=== PATIENT | male | born 1950 | race Caucasian/White ===

== ENCOUNTER 2020-06-07 07:53 | Outpatient (CLI) | payer OTHER, SELFPAY ==
--- NOTE | 2020-06-07 08:03 | USCV_ITS ---
Jeffrey Wells Age: 70 Gender: M : 1950 Exam Date: 06/07/2020 08:23 Ordering Phys: Josephine Travis APRN Technologist: Nyla Pizarro [place]am [place] [facility] [place] Indication: heart murmur BP: 130 / 70 HR: 54 Rhythm: Sinus Technical Quality: Good MEASUREMENTS (Male / Female) Normal Values 2D ECHO LV Diastolic Diameter PLAX 4.3 cm 4.2 - 5.9 / 3.9 - 5.3 cm LV Systolic Diameter PLAX 3.2 cm LV Chamber Size 3.7 cm IVS Diastolic Thickness 0.9 cm 0.6 - 1.0 / 0.6 - 0.9 cm IVS Systolic Thickness 1.3 cm LVPW Diastolic Thickness 1.2 cm 0.6 - 1.0 / 0.6 - 0.9 cm LVPW Systolic Thickness 1.1 cm RV Chamber Size 3.1 cm LVOT Diameter 2.0 cm LV Ejection Fraction 2D Teich 53.2 % LV Ejection Fraction MOD 2C 53.1 % LV Ejection Fraction 2C AL 52.3 % LA Diameter 3.0 cm LA Width 3.3 cm LA Height 3.7 cm RA Width 3.7 cm RA Height 4.3 cm Aorta at Sinotubular Diameter 2.9 cm M-MODE LV Diastolic Diameter MM 4.5 cm 4.2 - 5.9 / 3.9 - 5.3 cm LV Systolic Diameter MM 3.0 cm LV Ejection Fraction MM Teich 61.6 % IVS Diastolic Thickness MM 0.7 cm 0.6 - 1.0 / 0.6 - 0.9 cm IVS Systolic Thickness MM 1.1 cm LVPW Diastolic Thickness MM 1.0 cm 0.6 - 1.0 / 0.6 - 0.9 cm LVPW Systolic Thickness MM 1.2 cm RV Diastolic Diameter MM 0.6 cm Aortic Annulus Diameter 3.5 cm LA Ao Ratio MM 1.1 MV E Point Septal Separation 0.6 cm DOPPLER AV Peak Velocity 119.0 cm/s LVOT Peak Velocity 93.7 cm/s AV Area Cont Eq vti 2.5 cm squared AV Area Cont Eq pk 2.5 cm squared MV Area PHT 3.3 cm squared Mitral E to A Ratio 1.1 MV E' Velocity 54.0 cm/s Mitral E to MV E' Ratio 10.3 Mitral E to LV E' Lateral Ratio 8.7 Mitral E to LV E' Septal Ratio 12.7 TR Peak Velocity 168.5 cm/s TR Peak Gradient 11.4 mmHg TR Mean Velocity 121.4 cm/s TR Mean Gradient 6.9 mmHg TR Velocity Time Integral 49.7 cm TV Peak E Velocity 55.0 cm/s Right Atrial Pressure 3.0 mmHg Pulmonary Artery Systolic Pressu 14.4 mmHg PV Peak Velocity 52.0 cm/s RV Acceleration Time 0.1 s RV Ejection Time 0.3 s RV AcT/ET 0.4 FINDINGS Left Ventricle Normal left ventricular size and systolic function, EF 55 %. No regional wall motion abnormalities. Right Ventricle Normal right ventricular size and systolic function. Right Atrium Upper limit of normal. Left Atrium Upper limit of normal size Mitral Valve Thickened mitral valve. Aortic Valve Thickened aortic valve. Tricuspid Valve Structurally normal tricuspid valve without significant stenosis or regurgitation. Pulmonary artery systolic pressure is normal. Pulmonic Valve Structurally normal pulmonic valve without significant stenosis. There is no pulmonic regurgitation. Pericardium Normal pericardium without effusion. Aorta Normal aortic annulus size. CONCLUSIONS Normal left ventricular size and systolic function, EF 55 %. No regional wall motion abnormalities. Minimally thickened aortic and mitral valves. No significant stenotic or regurgitant lesions. There is no pericardial effusion. There are no intracardiac masses. No previous study is available for comparison. Dr Stacey Mart MD [facility] (Electronically Signed) Final Date: 07 June 2020 17:20 S
== END 2020-06-07 07:54 | disposition home or self-care (01) ==
LOC: US 07:57
PROVIDERS: PCP Family Medicine; Visit Provider Nurse Practitioner Family
DX: R01.1 Cardiac murmur, unspecified (principal); I10 Essential (primary) hypertension; R06.09 Other forms of dyspnea
CPT/HCPCS: 93306